=== PATIENT | female | born 1965 | race Caucasian/White ===

== ENCOUNTER → 2016-07-22 | Outpatient (CLI) | payer BC ==
[~2016-07-22] MED LIST: BACLOFEN10 MG PO; IBUPROFEN800 MG PO; LORTAB 10/500 T1 TAB PO; MULTIVITAMIN1 UDCAP PO; PREDNISONE5 MG PO; PROTONIX PO; TYLOX 5/500 CAP1 CAP PO; VITAMIN D1000 UNI1 PO
--- NOTE | ~2016-07-22 | MR17 ---
[facility] A Service of [facility] & [facility] RADIOLOGY TEXT RESULTS PATIENT: FRANC OLGUIN LOCATION: [facility] : 61 UNIT #: [id number] AGE: [address]: Nuha Brunson MD SEX: F ORDER DR: [id number] [facility] [address] [place], [place] [address] [id number] O MR#: [id number] Acc #: [id number] NAME: FRANC OLGUIN : 1965 SEX: F STUDY DATE/TIME: 07/22/2016 8:46 UNIT: [facility] ROOM: STUDY DESCRIPTION: MR Brain WWo Contrast Attending Physician: Nuha Brunson M.D. Referring Physician: Nuha Brunson M.D. Ordering Physician: Nuha Brunson M.D. Primary Care Physician: Nuha Brunson M.D. MEDICAL IMAGING REPORT This report is preliminary unless electronic signature is present EXAM MRI of the brain with and without contrast dated 07/22/2016 COMPARISON None. HISTORY Headaches, dizziness for 1.5 years, bilateral upper extremity tingling. FINDINGS Multisequence, multiplanar imaging of the brain was obtained with and without contrast. 12 mL of MultiHance was administered intravenously. There is a homogeneously enhancing extraaxial nodular lesion in the left frontal region measuring 0.7 x 0.7 x 0.6 mm. It has an associated dural tail. Taylor-white junction is preserved. Basal ganglia, brainstem and cerebellar hemispheres are within normal limits. Vascular flow voids of the major cerebral arteries and dural venous sinuses are not obstructed in these thicker slices. S-shaped nasal septal deviation is seen. Imaged orbits with the ocular structures, paranasal sinuses and mastoids are within normal limits. Thick slices through the sella with the pituitary gland, pineal region are unremarkable. Postoperative changes are noted in the cervical spine at the level of C5. IMPRESSION 1. There is a 7 mm nodular enhancing extraaxial lesion noted in the left frontal region most suggestive of a benign lesion like meningioma. Other differential considerations are less likely without any corroborating history. 2. No acute stroke, hydrocephalus, midline shift or hemorrhage. Dictated by... [facility] A Service of [facility] & [facility] RADIOLOGY TEXT RESULTS PATIENT: FRANC OLGUIN [id number] : 61 UNIT #: [id number] AGE: [address]: Nuha Brunson MD SEX: F ORDER DR: Ben Brooke M.D. THIS IS AN ELECTRONICALLY VERIFIED REPORT Ben Brooke M.D. at 07/24/2016 5:29 PM CPR/mjs TD: 07/23/2016 13:41 JOB #: [id number] MEDICAL IMAGING REPORT Page 1 of 1 COPY
--- NOTE | ~2016-07-22 | US37 ---
[facility] A Service of [facility] & [facility] RADIOLOGY TEXT RESULTS PATIENT: FRANC OLGUIN LOCATION: [facility] : 61 UNIT #: [id number] AGE: [address]: Nuha Brunson MD SEX: F ORDER DR: [id number] [place] [id number] O MR#: [id number] Acc #: [id number] NAME: FRANC OLGUIN : 1965 SEX: F STUDY DATE/TIME: 07/22/2016 9:49 UNIT: [facility] ROOM: STUDY DESCRIPTION: US Carotid W/Doppler Bilateral Attending Physician: Nuha Brunson M.D. Referring Physician: Nuha Brunson M.D. Ordering Physician: Nuha Brunson M.D. Primary Care Physician: Nuha Brunson M.D. MEDICAL IMAGING REPORT This report is preliminary unless electronic signature is present. DATE OF EXAM 07/22/2016 EXAM Bilateral carotid Doppler. HISTORY Dizziness, headaches. FINDINGS The right common, internal carotid, and external carotid arteries are patent with minimal plaque at the carotid bulb and proximal internal carotid artery. Velocity of the common carotid artery is 80 cm/sec. Peak systolic velocity of the right proximal internal carotid artery is 62 cm/sec with an end-diastolic velocity of 25 cm/sec, for an ICA/CCA ratio of 0.77. External carotid artery had a velocity of 94 cm/sec. The vertebral artery is visualized with antegrade flow. The left common carotid, internal carotid, and external carotid arteries are patent with mild plaque at the carotid bulb and proximal internal carotid artery. Velocity of the common carotid artery is 121 cm/sec. Peak systolic velocity of the left proximal internal carotid artery is 89 cm/sec with an end-diastolic velocity of 31 cm/sec, for an ICA/CCA ratio of 0.75. External carotid artery had a velocity of 83 cm/sec. The vertebral artery is visualized with antegrade flow. IMPRESSION 1. Less than 50% stenosis of the right and left internal carotid arteries. 2. No stenosis of the external carotid arteries. 3. Antegrade flow of the vertebral arteries. [facility] A Service of [facility] & [facility] RADIOLOGY TEXT RESULTS PATIENT: FRANC OLGUIN [id number] : 61 UNIT #: [id number] AGE: [address]: Nuha Brunson MD SEX: F ORDER DR: Dictated by... Jaylan Hunter M.D. THIS IS AN ELECTRONICALLY VERIFIED REPORT Jaylan Hunter M.D. at 07/23/2016 11:00 AM SAURABH/franck TD: 07/22/2016 14:57 JOB #: [id number] MEDICAL IMAGING REPORT Page 1 of 1
== END | disposition home or self-care (01) ==
LOC: SMRI 07:53
DX: R42 Dizziness and giddiness (principal); I65.23 Occlusion and stenosis of bilateral carotid arteries; G93.89 Other specified disorders of brain
CPT/HCPCS: 70553; 93880; A9581